=== PATIENT | male | born 1985 | race Caucasian/White ===

== ENCOUNTER 2017-08-12 09:42 | Emergency (ER) | payer OTHER ==
[~2017-08-12] VITALS: Ht 172.7 cm; Wt 86.4 kg
[2017-08-12 11:20] VITALS: BP 124/77
--- NOTE | 2017-08-12 16:11 | ECGEPIP ---
Stationary ECG Study [facility] - ED Test Date: 2017-08-12 Pat Name: PREMA JOHNSON Department: Room: - Gender: M Service [employer]ink[employer]: anny : 1985 Requested By: Ernie Lemos Order Number: [id number] Reading MD: Ruben Reyes Measurements Intervals [place] Rate: 45 P: 43 OK: 148 QRS: 35 QRSD: 97 T: 12 QT: 402 QTc: 348 Interpretive Statements SINUS BRADYCARDIA EARLY REPOLARIZATION NSTTW ABNORMALITIES NO PRIORS Electronically Signed On 08-12-2017 16:11:49 EDT by Ruben Reyes
== END 2017-08-12 11:24 | disposition home or self-care (01) ==
LOC: M ED 09:42 → EDBD 09:42 → M ED 11:24
DX: S49.91XA Unspecified injury of right shoulder and upper arm, initial encounter (principal); W86.8XXA Exposure to other electric current, initial encounter; Y92.9 Unspecified place or not applicable; Y93.9 Activity, unspecified; Y99.9 Unspecified external cause status; R00.1 Bradycardia, unspecified; R94.31 Abnormal electrocardiogram [ECG] [EKG]; Z87.891 Personal history of nicotine dependence